=== PATIENT | female | born 1935 | race Caucasian/White ===

== ENCOUNTER 2017-01-07 12:09 | Inpatient (IN) | payer MEDICARE ==
[2017-01-07 12:51] LABS: BASOPHIL 0.1 % (0-2); EOSINOPHIL 0 % (0-7); HCT 32.9 % (37.0-47.0); HGB 11.3 g/dl (12.5-16.0); LYMPHOCYTE 2.4 % (15-48); MCH 31.7 pg (25.0-31.0); MCHC 34.3 g/dL (32.0-36.0); MCV 92.2 fL (78.0-100.0); MONOCYTE 5.9 % (0-12); MPV 9.5 fL (6.0-9.5); NEUTROPHIL 91.6 % (41-80); PLT 299 K/uL (150-400); RBC 3.57 M/uL (4.20-5.40); RDW 13.6 % (11.5-14.0); WBC 15.7 K/uL (4.0-10.5)
[2017-01-07 12:53] LABS: BILIRUBIN NEGATIVE (NEGATIVE); BLOOD 3+ Ery/uL (NEGATIVE); CLARITY CLEAR (CLEAR); COLOR YELLOW (YELLOW); GLUCOSE (U) NORMAL (NORMAL); KETONE (U) NEGATIVE (NEGATIVE); LEUKOCYTES NEGATIVE Leu/uL (NEGATIVE); NITRITE NEGATIVE (NEGATIVE); PROTEIN 2+ mg/dL (NEGATIVE); SPECIFIC GRAVITY 1.025 (1.001-1.030); UROBILINOGEN 0.2 mg/dL (0.2-1.0)
[2017-01-07 12:56] LABS: INR 1.08 (0.9-1.2); PROTHROMBIN TIME 13.6 SECONDS (11.7-14.0)
[2017-01-07 12:58] LABS: AMORPHOUS URATES CRYSTALS MODERATE
[2017-01-07 13:03] LABS: ALBUMIN 3.8 g/dL (3.4-4.8); BILIRUBIN - TOTAL 0.3 mg/dL (0.1-1.0); CREATININE 2.5 mg/dL (0.5-1.0); GLOBULIN (CALCULATION) 3.3 g/dL (2.2-4.2); POTASSIUM 3.6 mmol/L (3.5-5.1); TOTAL PROTEIN 7.1 g/dL (6.4-8.3)
[2017-01-07 13:13] LABS: TROPONIN T 0.039 ng/mL
[2017-01-08 04:20] LABS: HCT 31.8 % (37.0-47.0); HGB 10.8 g/dl (12.5-16.0); MCH 31.4 pg (25.0-31.0); MCV 92.4 fL (78.0-100.0); MPV 9.3 fL (6.0-9.5); RBC 3.44 M/uL (4.20-5.40); RDW 13.6 % (11.5-14.0); WBC 14.5 K/uL (4.0-10.5)
[2017-01-08 04:38] LABS: CREATININE 2.1 mg/dL (0.5-1.0); POTASSIUM 3.1 mmol/L (3.5-5.1)
[2017-01-08 09:27] LABS: RETICULOCYTE COUNT 0.7 % (1.0-2.0)
[2017-01-08 09:39] LABS: IRON 22 ug/dL (44-196); IRON % SATURATION 11 %SAT (20-50); TIBC (TOTAL IRON + UIBC) 196 U/L (228-428); UIBC 174 ug/dL (112-346)
[2017-01-09 04:36] LABS: HCT 30.4 % (37.0-47.0); HGB 10.1 g/dl (12.5-16.0); MCH 31.1 pg (25.0-31.0); MCHC 33.2 g/dL (32.0-36.0); MCV 93.5 fL (78.0-100.0); MPV 9.3 fL (6.0-9.5); RBC 3.25 M/uL (4.20-5.40); RDW 13.9 % (11.5-14.0); WBC 12.4 K/uL (4.0-10.5)
[2017-01-09 04:51] LABS: POTASSIUM 3.2 mmol/L (3.5-5.1)
[2017-01-10 07:37] LABS: HCT 33.8 % (37.0-47.0); HGB 11.1 g/dl (12.5-16.0); MCH 30.7 pg (25.0-31.0); MCHC 32.8 g/dL (32.0-36.0); MCV 93.6 fL (78.0-100.0); MPV 8.6 fL (6.0-9.5); RBC 3.61 M/uL (4.20-5.40); RDW 14.3 % (11.5-14.0); WBC 10.5 K/uL (4.0-10.5)
[2017-01-10 07:54] LABS: CREATININE 1.6 mg/dL (0.5-1.0); POTASSIUM 3.8 mmol/L (3.5-5.1)
[2017-01-11 04:57] LABS: HGB 10.8 g/dl (12.5-16.0); MCH 30.8 pg (25.0-31.0); MCHC 32.7 g/dL (32.0-36.0); MPV 9.1 fL (6.0-9.5); RBC 3.51 M/uL (4.20-5.40); RDW 14.3 % (11.5-14.0); WBC 10.3 K/uL (4.0-10.5)
[2017-01-11 05:08] LABS: CREATININE 1.5 mg/dL (0.5-1.0); POTASSIUM 3.4 mmol/L (3.5-5.1)
[2017-01-12 04:09] LABS: HCT 32.5 % (37.0-47.0); HGB 10.7 g/dl (12.5-16.0); MCH 30.7 pg (25.0-31.0); MCHC 32.9 g/dL (32.0-36.0); MCV 93.4 fL (78.0-100.0); MPV 8.7 fL (6.0-9.5); RBC 3.48 M/uL (4.20-5.40)
[2017-01-12 04:25] LABS: CREATININE 1.4 mg/dL (0.5-1.0); POTASSIUM 3.5 mmol/L (3.5-5.1)
[2017-01-13 04:12] LABS: CREATININE 1.7 mg/dL (0.5-1.0); POTASSIUM 3.6 mmol/L (3.5-5.1)
[2017-01-13 05:16] LABS: HCT 31.4 % (37.0-47.0); HGB 10.2 g/dl (12.5-16.0); MCH 30.5 pg (25.0-31.0); MCHC 32.5 g/dL (32.0-36.0); RBC 3.34 M/uL (4.20-5.40); RDW 14.1 % (11.5-14.0); WBC 10.1 K/uL (4.0-10.5)
[2017-01-14 04:29] LABS: HCT 32.5 % (37.0-47.0); HGB 10.7 g/dl (12.5-16.0); MCH 30.9 pg (25.0-31.0); MCHC 32.9 g/dL (32.0-36.0); MCV 93.9 fL (78.0-100.0); MPV 8.5 fL (6.0-9.5); RBC 3.46 M/uL (4.20-5.40); RDW 14.1 % (11.5-14.0); WBC 10.4 K/uL (4.0-10.5)
[2017-01-14 04:46] LABS: CREATININE 1.7 mg/dL (0.5-1.0); POTASSIUM 3.9 mmol/L (3.5-5.1)
[2017-01-14] MEDS ORDERED: COZAAR100 MG PO (12:24)
[2017-01-14] MEDS ORDERED: COLESTID 1GM TAB1 GM PO (12:25)
[2017-01-14] MEDS ORDERED: AMLODIPINE BESY10 MG PO (12:25)
[2017-01-14] MEDS ORDERED: LIPITOR 10MG TA10 MG PO (12:25)
[2017-01-14] MEDS ORDERED: DUTOPROL 50-121 EACH PO (12:26)
[2017-01-14] MEDS ORDERED: AMITRIPTYLINE 775 MG PO (12:26)
[2017-01-14] MEDS ORDERED: COLCHICINE0.6 MG PO (12:27)
[2017-01-14] MEDS ORDERED: SYNTHROID75 MCG PO (12:27)
[2017-01-14] MEDS ORDERED: ZANTAC150 MG PO (12:27)
[2017-01-14] MEDS ORDERED: CLARITIN10 MG PO (12:27)
[2017-01-14] MEDS ORDERED: NORCO 5-325 TA1 EACH PO (12:28)
[2017-01-14] MEDS ORDERED: LEVAQUIN250 MG PO (12:28)
[2017-01-14] MEDS ORDERED: ALLOPURINOL300 MG PO (12:29)
[2017-01-14] MEDS ORDERED: LACTINEX1 EACH PO (12:30)
[2017-01-14] MEDS ORDERED: LASIX40 MG PO (12:30)
[2017-01-14] MEDS ORDERED: PREDNISONE 10MG10 MG PO (12:30)
[2017-01-14] MEDS ORDERED: ACETAMINOPHEN325 MG PO (12:31)
== END 2017-01-14 13:19 | DRG 177 ==
LOC: FER 12:09 → FTCU 16:50 → FMS 01-13 15:18
PROVIDERS: Emergency Medicine; Internal Medicine; ADMIT Internal Medicine
DX: J15.6 Pneumonia due to other Gram-negative bacteria (principal); G93.40 Encephalopathy, unspecified; J96.01 Acute respiratory failure with hypoxia; N17.9 Acute kidney failure, unspecified; I13.0 Hypertensive heart and chronic kidney disease with heart failure and stage 1 through stage 4 chronic kidney disease, or unspecified chronic kidney disease; I50.32 Chronic diastolic (congestive) heart failure; E11.22 Type 2 diabetes mellitus with diabetic chronic kidney disease; N18.9 Chronic kidney disease, unspecified; M10.9 Gout, unspecified; M1A.9XX0 Chronic gout, unspecified, without tophus (tophi); K21.9 Gastro-esophageal reflux disease without esophagitis; E78.5 Hyperlipidemia, unspecified; E03.9 Hypothyroidism, unspecified; E87.6 Hypokalemia
CPT/HCPCS: 36415; 36600; 71010; 71250; 80048; 80053; 80202; 81001; 82728; 82803; 83540; 83550; 83605; 83880; 84443; 84484; 84550; 85025; 85044; 85610; 87040; 87324; 87449; 87804; 87899; 93005; 94640; 94762; 96374; 97110; 97116; 97162; 97166; 97530; 97530-GP; 97535; J0456; J1644; J1940; J1956; J2405; J2543; J2930; J3370

== ENCOUNTER 2017-03-03 12:06 | Inpatient (IN) | payer MEDICARE ==
[~2017-03-03] VITALS: Ht 157.5 cm; Wt 71.0 kg
[~2017-03-03 12:06] MED LIST: ACETAMINOPHEN325 MG PO; ALLOPURINOL300 MG PO; AMITRIPTYLINE 775 MG PO; AMLODIPINE BESY10 MG PO; CLARITIN10 MG PO; COLCHICINE0.6 MG PO; COLESTID 1GM TAB1 GM PO; COZAAR100 MG PO; DUTOPROL 50-121 EACH PO; LACTINEX1 EACH PO; LASIX40 MG PO; LEVAQUIN250 MG PO; LIPITOR 10MG TA10 MG PO; NORCO 5-325 TA1 EACH PO; PREDNISONE 10MG10 MG PO; SYNTHROID75 MCG PO; ZANTAC150 MG PO
[2017-03-03 12:40] LABS: BASOPHIL 0.2 % (0-2); EOSINOPHIL 0.9 % (0-7); HCT 33.5 % (37.0-47.0); HGB 11.1 g/dl (12.5-16.0); LYMPHOCYTE 12.1 % (15-48); MCH 30.9 pg (25.0-31.0); MCHC 33.1 g/dL (32.0-36.0); MCV 93.3 fL (78.0-100.0); MONOCYTE 17.1 % (0-12); MPV 9.7 fL (6.0-9.5); NEUTROPHIL 69.7 % (41-80); PLT 415 K/uL (150-400); RBC 3.59 M/uL (4.20-5.40); WBC 6.6 K/uL (4.0-10.5)
[2017-03-03 12:54] LABS: ALBUMIN 3.1 g/dL (3.4-4.8); BILIRUBIN - TOTAL 0.4 mg/dL (0.1-1.0); CREATININE 2.5 mg/dL (0.5-1.0); GLOBULIN (CALCULATION) 2.3 g/dL (2.2-4.2); TOTAL PROTEIN 5.4 g/dL (6.4-8.3)
[2017-03-03 13:11] LABS: TROPONIN T 0.036 ng/mL
[2017-03-03 13:46] LABS: BILIRUBIN NEGATIVE (NEGATIVE); BLOOD TRACE-INTACT Ery/uL (NEGATIVE); CLARITY CLEAR (CLEAR); COLOR YELLOW (YELLOW); GLUCOSE (U) NORMAL (NORMAL); KETONE (U) NEGATIVE (NEGATIVE); LEUKOCYTES 2+ Leu/uL (NEGATIVE); NITRITE NEGATIVE (NEGATIVE); PROTEIN 2+ mg/dL (NEGATIVE); SPECIFIC GRAVITY 1.015 (1.001-1.030); UROBILINOGEN 0.2 mg/dL (0.2-1.0)
[2017-03-03 13:57] LABS: AMORPHOUS URATES CRYSTALS MODERATE; BACTERIA TRACE; GRANULAR CASTS TRACE; URINARY RBC RARE
[2017-03-03 19:14] LABS: POTASSIUM 2.9 mmol/L (3.5-5.1)
[2017-03-04 05:47] LABS: BASOPHIL 0.1 % (0-2); EOSINOPHIL 0.5 % (0-7); HCT 33.4 % (37.0-47.0); HGB 11.2 g/dl (12.5-16.0); LYMPHOCYTE 6.8 % (15-48); MCH 30.8 pg (25.0-31.0); MCHC 33.5 g/dL (32.0-36.0); MCV 91.8 fL (78.0-100.0); MONOCYTE 16.5 % (0-12); MPV 9.7 fL (6.0-9.5); NEUTROPHIL 76.1 % (41-80); PLT 484 K/uL (150-400); RBC 3.64 M/uL (4.20-5.40); RDW 16.4 % (11.5-14.0)
[2017-03-04 05:48] LABS: WBC 18.6 K/uL (4.0-10.5)
[2017-03-04 06:06] LABS: TROPONIN T 0.033 ng/mL
[2017-03-04 06:11] LABS: TSH (THYROID STIM HORMONE) 2.35 uIU/mL (0.270-4.200)
[2017-03-04 11:35] LABS: CREATININE 2.3 mg/dL (0.5-1.0); MAGNESIUM 1.56 mg/dL (1.40-2.10); POTASSIUM 3.3 mmol/L (3.5-5.1)
[2017-03-04 13:18] LABS: BASOPHIL 0.1 % (0-2); EOSINOPHIL 0.6 % (0-7); HCT 36.1 % (37.0-47.0); HGB 12.3 g/dl (12.5-16.0); LYMPHOCYTE 6.6 % (15-48); MCH 31.2 pg (25.0-31.0); MCHC 34.1 g/dL (32.0-36.0); MCV 91.6 fL (78.0-100.0); MONOCYTE 9.9 % (0-12); MPV 9.6 fL (6.0-9.5); NEUTROPHIL 82.8 % (41-80); PLT 399 K/uL (150-400); RBC 3.94 M/uL (4.20-5.40); RDW 16.7 % (11.5-14.0)
[2017-03-04 13:19] LABS: WBC 28.7 K/uL (4.0-10.5)
[2017-03-04 13:39] LABS: ALBUMIN 1.9 g/dL (3.4-4.8); BILIRUBIN - TOTAL 0.2 mg/dL (0.1-1.0); CREATININE 2.6 mg/dL (0.5-1.0); GLOBULIN (CALCULATION) 3.1 g/dL (2.2-4.2); MAGNESIUM 1.59 mg/dL (1.40-2.10); POTASSIUM 3.6 mmol/L (3.5-5.1)
[2017-03-04 23:19] LABS: BILIRUBIN 1+ mg/dL (NEGATIVE); BLOOD NEGATIVE Ery/uL (NEGATIVE); CLARITY CLEAR (CLEAR); COLOR YELLOW (YELLOW); GLUCOSE (U) NORMAL (NORMAL); KETONE (U) TRACE mg/dL (NEGATIVE); LEUKOCYTES TRACE Leu/uL (NEGATIVE); PROTEIN 1+ mg/dL (NEGATIVE); UROBILINOGEN 0.2 mg/dL (0.2-1.0)
[2017-03-04 23:21] LABS: NITRITE NEGATIVE (NEGATIVE)
[2017-03-05 00:30] LABS: URINE CREATININE 157.1 mg/dL (29-226); URINE TOTAL PROTEIN-RANDOM 54.9 mg/dL
[2017-03-05 03:45] LABS: EOSINOPHIL 0.3 % (0-7); HCT 36.4 % (37.0-47.0); HGB 12.4 g/dl (12.5-16.0); LYMPHOCYTE 5.1 % (15-48); MCH 31.2 pg (25.0-31.0); MCHC 34.1 g/dL (32.0-36.0); MCV 91.7 fL (78.0-100.0); MPV 9.7 fL (6.0-9.5); PLT 387 K/uL (150-400); RBC 3.97 M/uL (4.20-5.40); RDW 16.8 % (11.5-14.0)
[2017-03-05 04:02] LABS: ALBUMIN 1.8 g/dL (3.4-4.8); BASOPHIL 0 % (0-2); BILIRUBIN - TOTAL 0.2 mg/dL (0.1-1.0); CREATININE 2.6 mg/dL (0.5-1.0); GLOBULIN (CALCULATION) 1.8 g/dL (2.2-4.2); MAGNESIUM 2.06 mg/dL (1.40-2.10); NEUTROPHIL 89.5 % (41-80); POTASSIUM 4.1 mmol/L (3.5-5.1); TOTAL PROTEIN 3.6 g/dL (6.4-8.3); WBC 66.5 K/uL (4.0-10.5)
[2017-03-05 14:17] LABS: HCT 36.6 % (37.0-47.0); HGB 12.4 g/dl (12.5-16.0); MCH 31.2 pg (25.0-31.0); MCHC 33.9 g/dL (32.0-36.0); PLT 366 K/uL (150-400); RBC 3.98 M/uL (4.20-5.40); RDW 16.9 % (11.5-14.0)
[2017-03-05 14:20] LABS: WBC 99.2 K/uL (4.0-10.5)
[2017-03-05 14:27] LABS: CREATININE 2.4 mg/dL (0.5-1.0); MAGNESIUM 1.83 mg/dL (1.40-2.10); POTASSIUM 3.7 mmol/L (3.5-5.1)
[2017-03-05 14:51] LABS: EOSINOPHIL(M) 2 % (0-7); MONOCYTE(M) 12 % (0-12); NEUTROPHILS(M) 59 % (41-80); TOTAL CELL COUNT 100
[2017-03-05 14:52] LABS: BASOPHIL(M) 2 % (0-2); BLAST 5; LYMPHOCYTE(M) 10 % (15-48); METAMYELOCYTE 2; PLATELET ESTIMATE INCREASED; VARIANT LYMPHOCYTE 9
[2017-03-05 14:53] LABS: PLATELET MORPHOLOGY NORMAL
== END 2017-03-06 02:25 | disposition expired | DRG 871 ==
LOC: FER 12:06 → FMS 15:58 → FICU 03-04 13:02
PROVIDERS: Emergency Medicine; ADMIT Internal Medicine
PROC: 02HV33Z Insertion of Infusion Device into Superior Vena Cava, Percutaneous Approach (ICD-10-PCS; principal; 2017-03-04)
DX: A41.9 Sepsis, unspecified organism (principal); R65.21 Severe sepsis with septic shock; N17.9 Acute kidney failure, unspecified; N18.4 Chronic kidney disease, stage 4 (severe); E87.2 Acidosis; A04.7 Enterocolitis due to Clostridium difficile; N30.00 Acute cystitis without hematuria; I13.0 Hypertensive heart and chronic kidney disease with heart failure and stage 1 through stage 4 chronic kidney disease, or unspecified chronic kidney disease; I50.32 Chronic diastolic (congestive) heart failure; J98.11 Atelectasis; E87.6 Hypokalemia; K21.9 Gastro-esophageal reflux disease without esophagitis; Z87.01 Personal history of pneumonia (recurrent); Z79.899 Other long term (current) drug therapy
CPT/HCPCS: 36415; 36600; 71010; 71250; 80048; 80053; 81001; 81003; 82570; 82607; 82803; 83036; 83540; 83550; 83605; 83690; 83735; 83880; 84145; 84156; 84300; 84443; 84484; 85025; 87040; 87045; 87046; 87088; 87205; 87328; 87337; 87493; 93005; C9113; J0282; J1160; J1170; J1644; J1710; J2020; J2405; J2543; J2916; J3243; J3370; J3475; J3480; J7060